=== PATIENT | female | born 1955 | race Caucasian/White ===

== ENCOUNTER 2017-08-07 20:25 | Emergency (ER) | payer OTHER ==
[2017-08-07 20:32] VITALS: BP 118/74; PULSE 72; TEMP 98.4; BMI 18.8
--- NOTE | 2017-08-07 20:36 | PDOC ---
History of Present Illness - General History Source: Patient Exam Limitations: No Limitations - History of Present Illness Initial Comments: 08/07/17 21:16 The patient is a 61 year old female with no significant PMH of who presents to the emergency department with bruising and mild erythema to the bilateral forearms since last night. The patient states she started taking a B-complex plus two days ago. The patient denies any bruising or bleeding to any other part of her body. The patient denies any injury to her forearms. The patient denies numbness or tingling to her forearms. The patient denies chest pain, shortness of breath, headache and dizziness. Denies fever, chills, nausea, vomit, diarrhea and constipation. Denies dysuria, frequency, urgency and hematuria. Allergies: NKA Past surgical history: None reported. Social history: No reported alcohol, drug, or cigarette use. <Lalita Nolasco - Last Filed: 08/07/17 21:35> <Pati Marrero - Last Filed: 08/08/17 06:35> - General Chief Complaint: Pain Stated Complaint: BURNING SENSATION TO BOTH ARMS Time Seen by Provider: 08/07/17 20:35 Past History <Lalita Nolasco - Last Filed: 08/07/17 21:35> - Past Medical History COPD: No Other medical history: DENIES - Immunization History Immunization Up to Date: (2009) - Suicide/Smoking/Psychosocial Hx Smoking Status: No Smoking History: Never smoked Have you smoked in the past 12 months: No Number of Cigarettes Smoked Daily: 0 Hx Alcohol Use: No Drug/Substance Use Hx: No Substance Use Type: None <Pati Marrero - Last Filed: 08/08/17 06:35> - Past Medical History Allergies/Adverse Reactions: Allergies Allergy/AdvReac Type Severity Reaction Status Date / Time No Known Allergies Allergy Verified 08/07/17 20:27 Home Medications: Ambulatory Orders Vit B Comp/C/Folic/Iron/Vit E [Vitamin B Complex Tablet] 1 each PO DAILY Review of Systems - Review of Systems Able to Perform ROS?: Yes Comments:: 08/07/17 21:17 GENERAL/CONSTITUTIONAL: No fever or chills. No weakness. HEAD, EYES, EARS, NOSE AND THROAT: No change in vision. No ear pain or discharge. No sore throat. CARDIOVASCULAR: No chest pain or shortness of breath. RESPIRATORY: No cough, wheezing, or hemoptysis. GASTROINTESTINAL: No nausea, vomiting, diarrhea or constipation. GENITOURINARY: No dysuria, frequency, or change in urination. MUSCULOSKELETAL: No joint or muscle swelling or pain. No neck or back pain. SKIN: (+) bilateral forearm bruising. NEUROLOGIC: No headache, vertigo, loss of consciousness, or change in strength/ sensation. ENDOCRINE: No increased thirst. No abnormal weight change. HEMATOLOGIC/LYMPHATIC: No anemia, easy bleeding, or history of blood clots. ALLERGIC/IMMUNOLOGIC: No hives or skin allergy. <Lalita Nolasco - Last Filed: 08/07/17 21:35> *Physical Exam - Vital Signs Last Vital Signs Temp Pulse Resp BP Pulse Ox 98.4 F 72 18 118/74 99 08/07/17 20:25 08/07/17 20:25 08/07/17 20:25 08/07/17 20:25 08/07/17 20:25 - Physical Exam Comments: 08/07/17 21:18 GENERAL: (+) Anxious appearing. Awake, alert, and fully oriented, in no acute distress HEAD: No signs of trauma EYES: PERRLA, EOMI, sclera anicteric, conjunctiva clear ENT: Auricles normal inspection, hearing grossly normal, nares patent, oropharynx clear without exudates. Moist mucosa NECK: Normal ROM, supple, no lymphadenopathy, JVD, or masses LUNGS: Breath sounds equal, clear to auscultation bilaterally. No wheezes, and no crackles HEART: Regular rate and rhythm, normal S1 and S2, no murmurs, rubs or gallops ABDOMEN: Soft, nontender, normoactive bowel sounds. No guarding, no rebound. No masses EXTREMITIES: Normal range of motion, no edema. No clubbing or cyanosis. No cords, erythema, or tenderness NEUROLOGICAL: Cranial nerves II through XII grossly intact. Normal speech, normal gait SKIN: (+) Small ecchymotic bruises on the external surface of the forearm. Good pulses x4. Warm and well perfused. <Lalita Nolasco - Last Filed: 08/07/17 21:35> - Vital Signs Last Vital Signs Temp Pulse Resp BP Pulse Ox 98.4 F 72 18 118/74 99 08/07/17 20:25 08/07/17 20:25 08/07/17 20:25 08/07/17 20:25 08/07/17 20:25 - Physical Exam Comments: 08/08/17 06:34 Edit from exam: EXTENSOR surface of forearm, not external surface <Pati Marrero - Last Filed: 08/08/17 06:35> ED Treatment Course - LABORATORY CBC & Chemistry Diagram: 08/07/17 21:10 08/07/17 21:10 <Lalita Nolasco - Last Filed: 08/07/17 21:35> - LABORATORY CBC & Chemistry Diagram: 08/07/17 21:10 08/07/17 21:10 <Pati Marrero - Last Filed: 08/08/17 06:35> Medical Decision Making - Medical Decision Making 08/07/17 21:57 Pt with multiple concerns - tiny areas of ecchymosis to her arms, concern for vitamin deficiency and irregular appearing nails, very concerned about the spider veins in her legs. Hasn't seen a PMD in years. Recently started B supplements, has had "niacin flush" in the past. Overall, her symptoms seem more chronic in nature, can certainly be worked up by her PMD. CBC, chem and coags were done today, results of which are not alarming. Will give her copies of her labs, will recommend f/u with PCP, discontinue the new supplement and return if sxs worsen. <Pati Marrero - Last Filed: 08/08/17 06:35> *DC/Admit/Observation/Transfer - Attestations Scribe Attestion: 08/07/17 21:19 Documentation prepared by Lalita Nolasco, acting as medical records director for Pati Marrero DO. <Lalita Nolasco - Last Filed: 08/07/17 21:35> - Discharge Dispostion Decision to Admit order: No <Pati Marrero - Last Filed: 08/08/17 06:35> Diagnosis at time of Disposition: Ecchymosis of forearm - Discharge Dispostion Disposition: HOME Condition at time of disposition: Stable - Patient Instructions Additional Instructions: Please follow up with your primary care doctor.
[2017-08-07 21:26] LABS: BASO % 0.8 % (0-2.0); EOS % 0.9 % (0-4.5); HEMATOCRIT 35.2 % (32.4-45.2); HEMOGLOBIN 11.8 GM/dl (10.7-15.3); MCH 30.6 pg (25.7-33.7); MCHC 33.4 g/dl (32.0-36.0); MEAN CELL VOLUME 91.5 fl (80-96); MEAN PLT VOLUME 6.7 fl (7.5-11.1); MONO % 8.9 % (3.8-10.2); NEUT % 43.4 % (42.8-82.8); PLATELET COUNT 287 K/MM3 (134-434); RBC 3.85 M/mm3 (3.60-5.2); RDW 13.2 % (11.6-15.6); WHITE BLOOD COUNT 6.8 K/mm3 (4.0-10.8)
[2017-08-07 21:35] LABS: ACTIVATED PTT 30.6 SECONDS (24.0-38.9)
[2017-08-07 21:37] LABS: ALBUMIN 4.5 g/dl (3.5-5.0); ALK PHOS 37 U/L (32-92); ANION GAP 7 (8-16); BLOOD UREA NITROGEN 15 mg/dl (7-18); CALCIUM 9.5 mg/dl (8.4-10.2); CHLORIDE 102 mmol/L (98-107); CO2 28 mmol/L (22-28); GLUCOSE,RANDOM 105 mg/dl (74-106); POTASSIUM 4.4 mmol/L (3.5-5.1); SGOT/AST 25 U/L (10-42); SGPT/ALT 21 U/L (10-40); SODIUM 137 mmol/L (136-145); TOT PROT 6.8 g/dl (6.4-8.3)
[2017-08-07 21:40] LABS: INR 1.06 (0.82-1.09); PROTHROMBIN TIME (PATIENT) 11.9 SEC (10.2-13.0)
[2017-08-07 21:46] LABS: BILIRUBIN,TOTAL < 0.5 mg/dl (0.2-1.0); CREATININE < 0.8 mg/dl (0.6-1.3)
== END 2017-08-07 22:06 | disposition home or self-care (01) ==
LOC: FER 20:25
DX: S50.11XA Contusion of right forearm, initial encounter (principal); S50.12XA Contusion of left forearm, initial encounter
CPT/HCPCS: 36415; 80053; 85025; 85610; 85730; 99283-25